=== PATIENT | female | born 1955 | race Caucasian/White ===

== ENCOUNTER 2022-03-01 11:08 | Day surgery (SDC) | payer OTHER ==
[2022-02-27 13:59] LABS: Absolute Lymphocytes (CBC) 0.9 K/uL (0.7-4.9); Hematocrit 38.4 % (36.0-45.0); MCV 91.4 fL (80-100); MPV 6.7 fL (7.6-11.3); RBC Red Blood Cell Count 4.19 M/uL (3.86-4.86)
[2022-02-27 14:01] LABS: Potassium 4.1 mmol/L (3.5-5.1)
--- NOTE | 2022-02-27 14:06 | RAD REPORT ---
EXAM DESCRIPTION: Emmanuelle Traylor (2 Views)02/27/2022 1:49 pm CLINICAL HISTORY: Preop for hand surgery. Breast cancer COMPARISON: 2014 FINDINGS: The lungs appear clear of acute infiltrate. The heart is normal size IMPRESSION: No acute abnormalities displayed
[2022-02-27 14:19] LABS: Protime INR 0.78
--- NOTE | 2022-02-28 14:00 | EKG ---
Test Date: 2022-02-27 Test Time: 13:16:55 Slumber Room Attendant: KILLIANR MEASUREMENT RESULTS: Intervals: Rate: 65 ME: 116 QRSD: 72 QT: 400 QTc: 416 [place]: P: 22 ME: 116 QRS: 45 T: 25 INTERPRETIVE STATEMENTS: Normal sinus rhythm Normal ECG No previous ECG available for comparison Electronically Signed On 02-28-22 13:59:22 CDT by Raphael Taylor
[2022-03-01] MEDS ORDERED: CLINDAMYCIN 600MG/D5W 600 MG/50 ML BAG IV ONE (11:30)
[2022-03-01] MEDS ORDERED: Ringers Lactate 1,000 ML IV ONE ×2 (11:30→14:07)
[2022-03-01] MEDS ORDERED: LIDOCAINE 1% MPF 5 ML VIAL ONE (12:25)
[2022-03-01] MEDS ORDERED: MIDAZOLAM HCL 2 MG/2 ML INJ ONE (12:26)
[2022-03-01] MEDS ORDERED: EPINEPHRINE/PF 1 MG/ML AMP ONE (12:26)
[2022-03-01] MEDS ORDERED: BUPIVACAINE 0.5% Inj,MDV 50 mL VIAL ONE (12:26)
[2022-03-01] MEDS ORDERED: FENTANYL CITR 100 MCG/2 ML ONE ×2 (12:26→13:54)
[2022-03-01] MEDS ORDERED: ROPLVACAINE HCL 20 ML ONE (12:32)
[2022-03-01] MEDS ORDERED: propofoL 200 MG/20 ML VIAL IV ONE (12:52)
[2022-03-01] MEDS ORDERED: KETOROLAC 30 MG/ML INJ ONE (12:52)
[2022-03-01] MEDS ORDERED: dexAMETHasone 10 MG/ML VIAL ONE (12:52)
[2022-03-01] MEDS ORDERED: LIDOCAINE 2% MPF 5 ML VIAL ONE (12:53)
[2022-03-01] MEDS ORDERED: ONDANSETRON 4 MG/2 ML VIAL ONE (12:53)
[2022-03-01] MEDS ORDERED: BUPIVACAINE 0.5% PF 10 ML VIAL ONE (13:05)
--- NOTE | 2022-03-01 14:48 | P.BOP ---
Preoperative diagnosis: right distal radius fracture Postoperative diagnosis: same Primary procedure: open reduction internal fixation right distal radius fracture Certified Orthotist Practice Manager: NONE,NONE Estimated blood loss: 5 cc Specimen: none Findings: see dictation Anesthesia: General Complications: None Implants: Acumed 3 hole narrow distal radius locking plate Fluids & blood products: per anesthesia record; TT: 58 mins @ 250 mmHg Transferred to: Recovery Room Condition: Good
[2022-03-01] MEDS: HYDROMORPHONE HCL 1 MG/ML INJ ONE ×4 (15:10→15:30)
--- NOTE | 2022-03-01 15:19 | RAD REPORT ---
EXAM DESCRIPTION: RAD - Wrist Right 2 View - 03/01/2022 3:13 pm FINDINGS: There were 12 portable C-arm views submitted from fluoroscopic assisted placement of dista l radius fracture fixation hardware. No suspicious or unexpected findings. Fluoro time was 0.2 minutes. Cumulative dose was 0.202 mGy.
--- NOTE | 2022-03-01 16:03 | RAD REPORT ---
EXAM DESCRIPTION: RAD - Wrist Right 2 View - 03/01/2022 3:46 pm FINDINGS: PA and lateral views of the right wrist obtained following surgical fixation fracture. Juancarlos t material is in place. Hardware is well positioned. No suspicious or unexpected finding.
[2022-03-01 16:44] VITALS: BP 118/76; TEMP 97.8; O2SAT 99
--- NOTE | 2022-03-01 21:32 | P.OP ---
Preoperative diagnosis: right distal radius fracture Postoperative diagnosis: same Primary procedure: open reduction internal fixation two part right distal radius fracture Anesthesia: general Estimated blood loss: 5 cc Specimen: none Findings: see dictation Operative Technique: Indications: Bobbi is a 66-year-old female who presented to my clinic with signs, symptoms and x-ray findings consistent with a displaced angulated distal radius fracture. I discussed with the patient at length, risks and benefits associated with operative and nonoperative treatment and she expressed understanding and would like to proceed with operative treatment. Description Of Procedure: After informed consent was obtained, the patient was identified in the preoperative holding area. The right upper extremity was marked. The patient was then brought back to PACU, where she underwent a right upper extremity interscalene anesthesia to aid with postoperative pain control p erformed by Anesthesia. The patient was then brought back to the operating room, transferred to the operating table in the supine fashion, and placed under general LMA anesthesia. The right upper extremity was then prepped and draped in usual sterile fashion. A time-out was initiated and correct patient and procedure were confirmed and identified. The patient did receive her preoperative prophylactic antibiotics. Approximately a 6 cm longitudinal incision was made over the FCR tendon consistent with a volar Matthew approach. The FCR tendon sheath was identified, was split and divided in line with the incision. The FCR tendon was then retracted gently radially and the floor of the tendon sheath was opened using Metzenbaum. Blunt dissection was then taken down to the distal radius and the pronator quadratus was identified. The pronator quadratus was then elevated off the distal radius using a 15 blade and elevated using a wood handle elevator. The fracture was identified. The fracture was then held reduced with the use of a Nordheim elevator. A K-wire was then used introduced from the tip of the radial styloid and brought through in retrograde fashion to hold reduction. A 3 hole distal radius locking plate was then placed on the distal radius. Proper placement of the plate was confirmed using fluoroscopy. Once in proper position, a guide pin was then placed distally and was noted to b e just proximal to the articular surface. A single proximal 3.5 cortical screw was then placed within the shaft reducing the plate to the distal radius and then 4 distal radius locking screws were then placed at the distal portion of the plate to hold the distal fragment in position. Fluoroscopy was used to ensure proper placement of the plate and screws as well as proper reduction and this was confirmed. Two remaining proximal fracture screws were placed using 3.5 cortical screws in bicortical fashion. There was overall good reduction of the fracture as well as placement of the hardware. Final x-rays were then taken to confirm hardware placement as well as reduction. The wounds were then irrigated thoroughly with normal saline. Subcutaneous tissue was approximated using a 2-0 Vicryl. Skin was approximated using a 3-0 nylon. Sterile dressings were applied. The patient was placed in a sugar-tong splint, awakened and transferred to PACU in stable condition. Postoperative Plan: The patient will followup in 2 weeks for wound check, suture removal and placement of a removable wrist brace. Complications: None Implants: Acumed 3 hole narrow distal radius locking plate Fluids & blood products: per anesthesia record; TT: 58 mins @ 250 mmHg Transferred to: Recovery Room Condition: Good
== END 2022-03-01 16:40 | disposition home or self-care (01) ==
LOC: OR 11:08
PROVIDERS: ATTEND Orthopaedic Surgery Sports Medicine
PROC: 0PSH04Z Reposition Right Radius with Internal Fixation Device, Open Approach (ICD-10-PCS; principal; 2022-03-01 13:30)
DX: S52.571A Other intraarticular fracture of lower end of right radius, initial encounter for closed fracture (principal)
CPT/HCPCS: 93005; 85025; 80048; 36415; 85610; 85730; 71046; 73100 ×2; 25608; J2704; J0171; J2001 ×2; J2250; J3010 ×2; J1100; J2795; J1170 ×2; J7120 ×2; J2405

== ENCOUNTER 2023-10-21 17:35 | Emergency (ER) | payer MEDICARE, OTHER ==
[2023-10-21] MEDS ORDERED: methocarbamoL 500 MG TAB ONE (18:05)
--- NOTE | 2023-10-21 19:02 | RAD REPORT ---
EXAM DESCRIPTION: RAD - Ankle Left 3 View - 10/21/2023 6:56 pm CLINICAL HISTORY: PAIN COMPARISON: Ankle Left 3 View dated 08/20/2012 FINDINGS: No acute fracture or dislocation seen. Moderate posterior calcaneal spur.
--- NOTE | 2023-10-21 19:03 | RAD REPORT ---
EXAM DESCRIPTION: RAD - Foot Left 3 View - 10/21/2023 6:56 pm CLINICAL HISTORY: PAIN COMPARISON: No comparisons FINDINGS: There is a mildly angulated fracture of the second metatarsal neck. No additional fracture seen. Moderate posterior calcaneal spur.
--- NOTE | 2023-10-21 19:11 | ER ---
Nurse's Notes [facility] Name: Bobbi Fontenot Age: 68 yrs Sex: Female : 1955 Arrival Date: 10/21/2023 Time: 17:35 Bed 15 Private MD: Diagnosis: Displaced fracture of second metatarsal bone, left foot, initial encounter for closed fracture Presentation: 10/20 17:45 Chief complaint: Stepped off curb and rolled ankle yesterday, c/o left foot pain 8/10. hb Coronavirus screen: At this time, the client does not indicate any symptoms associated with coronavirus-19. Ebola Screen: No symptoms or risks identified at this time. Initial Sepsis Screen: Does the patient meet any 2 criteria? No. Patient's initial sepsis screen is negative. Does the patient have a suspected source of infection? No. Patient's initial sepsis screen is negative. Risk Assessment: Do you want to hurt yourself or someone else? Patient reports no desire to harm self or others. Onset of symptoms was October 20, 2023. 17:45 Method Of Arrival: Wheelchair hb 17:45 Acuity: CHRISTINA 4 hb Triage Assessment: 17:47 General: Appears in no apparent distress. Behavior is calm, cooperative. Pain: Pain hb currently is 8 out of 10 on a pain scale. Neuro: Level of Consciousness is awake, alert, obeys commands, Oriented to person, place, time, situation. Cardiovascular: Patient's skin is warm and dry. Respiratory: Respiratory effort is even, unlabored, Respiratory pattern is regular, symmetrical. Musculoskeletal: Reports left foot pain 8/. Historical: - Allergies: 17:46 Anaprox; hb 17:46 Aspirin; hb 17:46 Azithromycin; hb 17:46 Codeine; hb 17:46 Latex; hb 17:46 Levaquin; hb 17:46 PENICILLINS; hb 17:46 Sulfa (Sulfonamide Antibiotics); hb 17:46 talacen; hb 17:46 Talwin; hb 17:46 tramadol; hb - PMHx: 17:46 BREAST CA; hb - PSHx: 17:46 Appendectomy; section; Total abdominal hysterectomy; hb - Immunization history:: Adult Immunizations up to date. - Infectious Disease History:: Denies. - Social history:: Smoking status: Patient denies any tobacco usage or history of. Screenin:09 [facility] ED Fall Risk Assessment (Adult) History of falling in the last 3 months, bp including since admission Yes- single mechanical fall (1 pt). Abuse screen: Denies threats or abuse. Denies injuries from another. Nutritional screening: No deficits noted. Tuberculosis screening: No symptoms or risk factors identified. Assessment: 18:09 General: Appears in no apparent distress. Behavior is cooperative, appropriate for age, bp anxious. 19:15 Reassessment: Patient is alert, oriented x 3, equal unlabored respirations, skin lc8 warm/dry/pink. Vital Signs: 17:45 BP 126 / 59; Pulse 89; Resp 16; Temp 97.6(O); Pulse Ox 99% on R/A; Weight 44 kg; Height hb 5 ft. 1 in. ; Pain 8/10; 19:15 BP 128 / 61; Pulse 82; Resp 16; Pulse Ox 98% ; lc8 17:45 Body Mass Index 18.33 (44.00 kg, 154.94 cm) hb 17:45 Pain Scale: Adult hb ED Course: 17:39 Patient arrived in ED. rg4 17:39 John Allen MD is Attending Physician. ec2 17:46 Triage completed. hb 17:47 Arm band placed on. hb 17:59 Ahmet Ramos, LYDIA is Primary Nurse. bp 18:09 Patient has correct armband on for positive identification. bp 18:58 Foot Left 3 View XRAY In Process Unspecified. EDMS 18:58 Ankle Left 3 View XRAY In Process Unspecified. EDMS 19:10 John Morin MD is Referral Physician. ec2 19:20 Provided Education on: follow up insturctions. lc8 19:20 No provider procedures requiring assistance completed. lc8 19:20 Patient did not have IV access during this emergency room visit. lc8 Administered Medications: 18:09 Not Given (Patient Refused): [id number] mg PO once bp Medication: 19:20 VIS not applicable for this client. lc8 Outcome: 19:10 Discharge ordered by . ec2 19:20 Discharged to home ambulatory, with family, lc8 19:20 Condition: stable 19:20 Discharge instructions given to patient, Instructed on discharge instructions, follow up and referral plans. 19:31 Patient left the ED. lc8 Signatures: Dispatcher [employer] Wendi Maynard, RN RN Poonam Stringer rg4 Ahmet Ramos RN RN John Cuevas MD MD ec2 Marcus Diaz RN RN lc8
--- NOTE | 2023-10-21 19:11 | EDPHYS ---
Physician Documentation [facility] Name: Bobbi Fontenot Age: 68 yrs Sex: Female : 1955 Arrival Date: 10/21/2023 Time: 17:35 Bed 15 Private MD: ED Physician John Allen HPI: 10/20 19:08 This 68 yrs old Female presents to ER via Wheelchair with complaints of Fall ec2 Injury. 19:08 Patient arrives today for evaluation of a foot injury. Had misstep and injured her ec2 foot.. Historical: - Allergies: 17:46 Anaprox; hb 17:46 Aspirin; hb 17:46 Azithromycin; hb 17:46 Codeine; hb 17:46 Latex; hb 17:46 Levaquin; hb 17:46 PENICILLINS; hb 17:46 Sulfa (Sulfonamide Antibiotics); hb 17:46 talacen; hb 17:46 Talwin; hb 17:46 tramadol; hb - PMHx: 17:46 BREAST CA; hb - PSHx: 17:46 Appendectomy; section; Total abdominal hysterectomy; hb - Immunization history:: Adult Immunizations up to date. - Infectious Disease History:: Denies. - Social history:: Smoking status: Patient denies any tobacco usage or history of. ROS: 19:08 Constitutional: as per hpi ec2 Exam: 19:08 Constitutional: GEN: NAD Head: atraumatic Eyes: EOMI Ears: External ears are ec2 normal. CV: regular rate LUNGS: no respiratory distress ABD: non-distended SKIN: no evidence of rashes MSK: Left foot with TTP. NEURO: moves all extremities equally Vital Signs: 17:45 BP 126 / 59; Pulse 89; Resp 16; Temp 97.6(O); Pulse Ox 99% on R/A; Weight 44 kg; Height hb 5 ft. 1 in. ; Pain 8/10; 19:15 BP 128 / 61; Pulse 82; Resp 16; Pulse Ox 98% ; lc8 17:45 Body Mass Index 18.33 (44.00 kg, 154.94 cm) hb 17:45 Pain Scale: Adult hb MDM: 17:40 Patient medically screened. ec2 19:09 Data reviewed: vital signs. ED course: Patient arrives today for evaluation of left ec2 foot injury. Examination remarkable for MSK findings as above. Radiograph obtained, shows slight metatarsal fracture. Will place patient in a hard soled shoe and have the patient follow-up outpatient expectantly with orthopedic surgery. I offered the patient different pain medications however she declined indicating multiple medication allergies.. 10/20 17:53 Order name: Foot Left 3 View XRAY; Complete Time: 19:07 ec2 10/20 17:53 Order name: Ankle Left 3 View XRAY; Complete Time: 19:07 ec2 10/20 17:53 Order name: Connor Wrap; Complete Time: 18:00 ec2 10/20 19:12 Order name: Post-op shoe; Complete Time: 19:44 ec2 Administered Medications: 18:09 Not Given (Patient Refused): [id number] mg PO once bp Disposition Summary: 10/21/23 19:10 Discharge Ordered Notes: Location: Home ec2 Condition: Stable ec2 Diagnosis - Displaced fracture of second metatarsal bone, left foot, initial encounter for ec2 closed fracture Followup: ec2 - With: John Morin MD - When: - Reason: Recheck today's complaints Discharge Instructions: - Discharge Summary Sheet ec2 - Metatarsal Fracture ec2 Forms: - Medication Reconciliation Form ec2 - Antibiotic Education ec2 - Prescription Opioid Use ec2 - Patient Portal Instructions ec2 - Leadership Thank You Letter ec2 Signatures: Dispatcher [employer] Wendi Maynard RN RN John Allen MD MD ec2 Ahmet Ramos RN bp Corrections: (The following items were deleted from the chart) 19:09 19:08 Constitutional: No acute distress ec2 ec2 10/21 09:05 10/20 19:09 ED course: Patient arrives today for evaluation of left foot injury. ec2 Examination remarkable for MSK findings as above. Radiograph obtained, shows slight metatarsal fracture. Will place patient in a hard soled shoe and have the patient follow-up outpatient expectantly with orthopedic surgery.. ec2
[2023-10-21 19:55] VITALS: BP 126/59; TEMP 97.6; O2SAT 99
== END 2023-10-21 19:31 | disposition home or self-care (01) ==
LOC: ER 17:35
DX: S92.322A Displaced fracture of second metatarsal bone, left foot, initial encounter for closed fracture (principal)
CPT/HCPCS: 99282

== ENCOUNTER 2024-07-25 13:34 | Emergency (ER) | payer MEDICARE ==
[2024-07-25 14:22] LABS: Absolute Eosinophils 0.1 K/uL (0-0.5); Absolute Lymphocytes (CBC) 1.1 K/uL (0.7-4.9); Absolute Monocytes 0.9 K/uL (0.1-1.3); Absolute Neutrophil 3.7 K/uL (1.8-8.0); Basophils % 0.5 % (0-1.3); Eosinophils % 2.3 % (0-4.4); Hematocrit 36.8 % (36.0-45.0); Hemoglobin 12.6 g/dL (12.0-15.0); Lymphocytes % 18.3 % (15.3-44.8); MCH 31.5 pg (27.0-35.0); MCHC 34.2 g/dL (32.0-36.0); MCV 92.3 fL (80-100); MPV 6.9 fL (7.6-11.3); Neutrophils % 62.9 % (41.7-73.7); Platelets 385 thou/uL (152-406); RBC Red Blood Cell Count 3.99 M/uL (3.86-4.86); Red Cell Distribution Width 13.1 % (12.1-15.2)
--- NOTE | 2024-07-25 14:26 | RAD REPORT ---
EXAM: CT brain without contrast HISTORY: DIZZINESS COMPARISON: 03/01/2009 TECHNIQUE: Multiple contiguous axial images were obtained and a CT of the brain without contrast. Sag ittal and coronal reformats were performed. One or more of the following dose reduction techniques were used: Automated exposure control, adjust ment of the mA and/or kV according to patient size, and/or iterative reconstruction. FINDINGS: No evidence of hydrocephalus, intracranial hemorrhage, or extra-axial fluid collection. A few small periventricular areas of chronic microvascular ischemia. No evidence of midline shift or areas of brain edema. The calvarium is intact. The visualized paranasal sinuses and mastoid air cells are essentially clear . IMPRESSION: No evidence of acute intracranial abnormality.
--- NOTE | 2024-07-25 14:27 | RAD REPORT ---
EXAMINATION: ONE VIEW CHEST XR CLINICAL INDICATION: CHEST PAIN TECHNIQUE: Frontal chest projection is submitted. Examination is limited by patient positioning and t echnique. COMPARISON: 02/27/2022 FINDINGS: The lungs are well inflated and clear. The heart is upper limit of normal in size. No displaced fract ures identified. Aortic atherosclerosis. IMPRESSION: No acute intrathoracic abnormalities.
[2024-07-25 14:29] LABS: PT Prothrombin Time 10.7 SECONDS (10-13.0); Protime INR 0.94
[2024-07-25 14:30] LABS: PTT, Activated Partial Thromb 33.1 SECONDS (27.2-37.4)
[2024-07-25 15:07] LABS: ALT/SGPT 20 U/L (13-56); AST/SGOT 16 U/L (15-37); Albumin 3.8 g/dL (3.4-5.0); Albumin/Globulin Ratio 0.9 (1.1-1.8); Alkaline Phosphatase 73 U/L (45-117); Anion Gap 8.5 mEq/L (5.0-15.0); BUN Blood Urea Nitrogen 16 mg/dL (7-18); Bicarbonate 28 mEq/L (21-32); Bilirubin Direct < 0.2 mg/dL (0-0.2); Bilirubin Indirect, Calculated 0.1 mg/dL (0.2-0.8); Bilirubin Total 0.3 mg/dL (0.2-1.0); Globulin 4.2 g/dL (2.3-3.5); Glomerular Filtration Rate 95 ml/min (=/>90); Glucose Level 100 mg/dL (74-106); Magnesium 2.3 mg/dL (1.6-2.4); Potassium 4.5 mEq/L (3.5-5.1); Sodium Level 136 mEq/L (136-145); Troponin High Sensitivity 4.2 pg/mL (<58.9)
--- NOTE | 2024-07-25 17:44 | RAD REPORT ---
EXAMINATION: MRI BRAIN WITHOUT CONTRAST CLINICAL INDICATION: DIZZINESS TECHNIQUE: Multiplanar multisequence MR images of the brain were obtained without intravenous contras t. Unless otherwise specified, incidental findings do not require dedicated imaging follow-up. COMPARISON: No prior exam. FINDINGS: INTRACRANIAL: Diffusion-weighted images show no acute or early subacute infarction. No abnormal brain parenchymal signal. The ventricles are normal in size and morphology. No augmented susceptibility. There is no mass effect or midline shift. No abnormal extraaxial fluid collection. There are several FLAIR hyperintense lesions periventricular white matter which could be related to chronic microvascular ischemia or demyelinating condition. Clinical correlation recommended. VASCULATURE: Normal signal voids in the larger intracranial arteries and dural venous sinuses. SINUSES: The paranasal sinuses and mastoid air cells are predominantly clear. BONE: The marrow signal pattern is within normal limits. IMPRESSION: Negative for acutre CVA or other acute intracranial finding.
[2024-07-25 18:10] LABS: Specific Gravity 1.018 (1.005-1.030); Urine Bilirubin NEGATIVE (Negative); Urine Blood Negative (Negative); Urine Clarity Clear (Clear); Urine Color Yellow (Yellow); Urine Glucose NEGATIVE (Negative); Urine Ketones NEGATIVE (Negative); Urine Microscopic Reflex YN NO UMIC; Urine Nitrite NEGATIVE (Negative); Urine Protein NEGATIVE (Negative); Urine Urobilinogen Normal (Normal); Urine pH 6.5 (5.0-7.0)
--- NOTE | 2024-07-25 19:15 | RAD REPORT ---
EXAMINATION: CTA HEAD CLINICAL INDICATION: DIZZINESS TECHNIQUE: Axial CT images were obtained through the head after intravenous contrast utilizing angiog raphic protocol with 3D post-processing (maximum intensity projection images, volume rendered images and/or shaded surface rendered images). One or more of the following dose reduction technique s were used: Automated exposure control, adjustment of the mA and/or kV according to patient size, and/or iterative reconstruction. Unless otherwise specified, incidental findings do not require dedic ated imaging follow-up. COMPARISON: No prior exam. FINDINGS: ICA: The petrous, cavernous, and supraclinoid segments of the bilateral internal carotid arteries are normal. The ophthalmic artery origins are visualized and normal. The posterior communicating arteries are patent. [place]: Anterior cerebral arteries are normal bilaterally. The anterior communicating artery is patent. MCA: Middle cerebral arteries are normal bilaterally. UTILITY SYSTEMS REPAIRER OPERATOR: Posterior cerebral arteries are normal bilaterally. Vertebrobasilar: The vertebral arteries are patent. The basilar artery is normal in appearance. 3D images confirm these findings. IMPRESSION: No significant flow abnormality is identified.
--- NOTE | 2024-07-25 19:24 | RAD REPORT ---
EXAMINATION: CTA NECK CLINICAL INDICATION: dizziness TECHNIQUE: Axial CT images were obtained from the aortic arch to the skull base after intravenous con trast utilizing angiographic protocol with 3D post-processing (maximum intensity projection images, volume rendered images and/or shaded surface rendered images). One or more of the following dose redu ction techniques were used: Automated exposure control, adjustment of the mA and/or kV according to patient size, and/or iterative reconstruction. Unless otherwise specified, incidental findings do not require dedicated imaging follow-up. COMPARISON: No prior exam. FINDINGS: AORTA: The imaged aortic arch is normal. CCA: The common carotid arteries are patent and normal in caliber. ICA/ECA: Moderate hard plaque is seen in both carotid bulbs, slightly greater on the right. This resu lts in stenosis of 50% or less bilaterally. VERTEBRAL: The cervical vertebral arteries are patent. The vertebral arteries are codominant. SOFT TISSUE: No significant neck soft tissue abnormalities. The visualized lung apices are clear. 3D images confirm these findings. IMPRESSION: Moderate hard plaque is seen in both carotid bulbs, slightly greater on the right. This results in ap proximately 50% stenosis on the right. NASCET criteria used. Mild 0-49% stenosis Moderate 50-69% stenosis Severe 70-99% stenosis
--- NOTE | 2024-07-25 19:32 | EDPHYS ---
Physician Documentation [facility] Name: Bobbi Fontenot Age: 69 yrs Sex: Female : 1955 Arrival Date: 07/25/2024 Time: 13:34 Bed 10 Private MD: ED Physician Sammie Prasad HPI: 07/25 14:01 This 69 yrs old Female presents to ER via Ambulatory with complaints of Shortness Of kb Breath, Dizziness. 14:01 Pt is a 69 year old female who presents for dizziness that has been intermittent for 6 kb days. States it is getting better, but her children wanted her to come get checked out. Denies n/v/d, visual disturbances, numbness. Was seen at on Sunday and diagnosed with a UTI, started her on Macrobid. Reports slight shortness of breath and a few episodes of chest discomfort. Reports fatigue. . Historical: - Allergies: 13:57 Anaprox; iw 13:57 Aspirin; iw 13:57 Azithromycin; iw 13:57 Codeine; iw 13:57 Levaquin; iw 13:57 PENICILLINS; iw 13:57 Sulfa (Sulfonamide Antibiotics); iw 13:57 talacen; iw 13:57 Talwin; iw 13:57 tramadol; iw - PMHx: 13:57 BREAST CA; iw - PSHx: 13:57 Appendectomy; section; Total abdominal hysterectomy; iw - Immunization history:: Adult Immunizations up to date. - Infectious Disease History:: Denies. - Social history:: Smoking status: Patient denies any tobacco usage or history of. ROS: 14:01 Constitutional: As per HPI kb Exam: 14:04 Constitutional: This is a well developed, well nourished patient who is awake, alert, kb and in no acute distress. Head/Face: Normocephalic, atraumatic. ENT: Moist Mucous membranes Cardiovascular: Regular rate Respiratory: Respirations even and unlabored. No increased work of breathing. Talking in full sentences Abdomen/GI: Soft, non-tender. No distention Skin: Warm, dry with normal turgor. Normal color. MS/ Extremity: Pulses equal, no cyanosis. Neurovascular intact. Full, normal range of motion. Neuro: Awake and alert, GCS 15, oriented to person, place, time, and situation. 18:25 ECG was reviewed by the Attending Physician. kb Vital Signs: 13:57 BP 143 / 68; Pulse 74; Resp 16; Pulse Ox 97% on R/A; iw 18:25 BP 154 / 84; Pulse 77; Resp 16; Pulse Ox 100% on R/A; Pain 0/10; hb 20:17 BP 146 / 76; Pulse 75; Resp 16; Pulse Ox 97% ; cp4 18:25 Pain Scale: Adult hb MDM: 13:41 Medical Screening Exam initiated kb 14:05 Data reviewed: vital signs, nurses notes. ED course: Pt is a 69 year old female with a kb history of hypertension, high cholesterol and breast CA that presents for dizzy spells, slight shortness of breath and fatigue that started 6 days ago. Currents medications include carvedilol 12.5mg BID, losartan 25mg BID and pravastatin 10mg QHS. No acute findings on exam. Pt is in no distress at this time. Will obtain serum labs, EKG and CT head. . 19:32 Differential diagnosis: vertigo, dehydration, abnormal electrolytes, CVA. Consideration kb of Admission/Observation Escalation of care including admission/observation considered. admission considered. Pt has follow up with PCP on Sunday. . Historians other than the Patient: Spouse/Significant Other: boyfriend. Counseling: I had a detailed discussion with the patient and/or guardian regarding the historical points, exam findings, and any diagnostic results supporting the discharge/admit diagnosis, lab results, radiology results, the need for outpatient follow up, a family practitioner, to return to the emergency department if symptoms worsen or persist or if there are any questions or concerns that arise at home. 07/25 14:01 Order name: Basic Metabolic Panel; Complete Time: 15:09 kb 07/25 14:01 Order name: CBC with Diff; Complete Time: 14:52 kb 07/25 14:01 Order name: Hepatic Function; Complete Time: 15:09 kb 07/25 14:01 Order name: Magnesium; Complete Time: 15:09 kb 07/25 14:01 Order name: Protime (+inr); Complete Time: 14:52 kb 07/25 14:01 Order name: Ptt, Activated; Complete Time: 14:52 kb 07/25 14:01 Order name: Troponin High Sensitivity; Complete Time: 15:09 kb 07/25 14:01 Order name: Urinalysis w/ reflexes; Complete Time: 18:12 kb 07/25 14:01 Order name: Chest Single View XRAY; Complete Time: 14:52 kb 07/25 14:05 Order name: CT Head Brain wo Cont; Complete Time: 14:52 kb 07/25 15:14 Order name: MRI - Brain Wo Cont; Complete Time: 17:52 kb 07/25 18:08 Order name: CT Head Angio; Complete Time: 19:17 kb 07/25 18:08 Order name: CT Neck Angio; Complete Time: 19:27 kb 07/25 14:01 Order name: EKG - Nurse/Tech; Complete Time: 18:25 kb 07/25 14:01 Order name: IV Saline Lock; Complete Time: 17:59 kb 07/25 14:01 Order name: Labs collected and sent; Complete Time: 17:59 kb 07/25 14:01 Order name: NPO; Complete Time: 17:59 kb 07/25 14:01 Order name: O2 Per Protocol; Complete Time: 17:59 kb 07/25 14:01 Order name: O2 Sat Monitoring; Complete Time: 17:59 kb 07/25 16:31 Order name: Misc. Order: awaiting urine and ekg; Complete Time: 18:25 kb EC:25 Rate is 66 beats/min. Rhythm is regular. QRS Bryan is Normal. WA interval is normal at kb 144 msec. QRS interval is normal at 68 msec. QT interval is normal at 387 msec. Administered Medications: No medications were administered Disposition Summary: 07/25/24 19:32 Discharge Ordered Notes: Location: Home kb Condition: Stable kb Diagnosis - Dizziness and giddiness kb Followup: kb - With: Private Physician - When: 2 - 3 days - Reason: Recheck today's complaints, Continuance of care, Re-evaluation by your physician Followup: kb - With: Emergency Department - When: As needed - Reason: Worsening of condition Discharge Instructions: - Discharge Summary Sheet kb - Vertigo, [id number] kb - Dizziness, [id number] kb Forms: - Medication Reconciliation Form kb - Antibiotic Education kb - Prescription Opioid Use kb - Patient Portal Instructions kb - Leadership Thank You Letter kb Signatures: Dispatcher [employer] Meera Feliz FNP-C [employer]ING RANGE TENDER-Lorie Guerrero, RN RN iw Wendi Mcfarland RN RN Corrections: (The following items were deleted from the chart) 14:01 14:01 Chest Single View+RAD.RAD.BRZ ordered. EDMS EDMS 15:14 15:14 Brain Wo Cont+MRI.RAD.BRZ ordered. EDMS EDMS
--- NOTE | 2024-07-25 19:32 | ER ---
Nurse's Notes [facility] Name: Bobbi Fontenot Age: 69 yrs Sex: Female : 1955 Arrival Date: 07/25/2024 Time: 13:34 Bed 10 Private MD: Diagnosis: Dizziness and giddiness Presentation: 07/25 13:56 Chief complaint: Patient states: dizzy spells. Coronavirus screen: At this time, the iw client does not indicate any symptoms associated with coronavirus-19. Risk Assessment: Do you want to hurt yourself or someone else? Patient reports no desire to harm self or others. 13:56 Method Of Arrival: Ambulatory iw 13:57 Ebola Screen: No symptoms or risks identified at this time. Initial Sepsis Screen: Does iw the patient meet any 2 criteria? No. Patient's initial sepsis screen is negative. Does the patient have a suspected source of infection? No. Patient's initial sepsis screen is negative. 13:57 Acuity: CHRISTINA 3 iw Historical: - Allergies: 13:57 Anaprox; iw 13:57 Aspirin; iw 13:57 Azithromycin; iw 13:57 Codeine; iw 13:57 Levaquin; iw 13:57 PENICILLINS; iw 13:57 Sulfa (Sulfonamide Antibiotics); iw 13:57 talacen; iw 13:57 Talwin; iw 13:57 tramadol; iw - PMHx: 13:57 BREAST CA; iw - PSHx: 13:57 Appendectomy; section; Total abdominal hysterectomy; iw - Immunization history:: Adult Immunizations up to date. - Infectious Disease History:: Denies. - Social history:: Smoking status: Patient denies any tobacco usage or history of. Screenin:25 [facility] ED Fall Risk Assessment (Adult) History of falling in the last 3 months, hb including since admission No falls in past 3 months (0 pts) Confusion or Disorientation No (0 pts) Intoxicated or Sedated No (0 pts) Impaired Gait No (0 pts) Mobility Assist Device Used No (0 pt) Altered Elimination No (0 pt) Score/Fall Risk Level 0 - 2 = Low Risk Oriented to surroundings, Maintained a safe environment, Educated pt \T\ family on fall prevention, incl call for assistance when getting out of bed. Abuse screen: Denies threats or abuse. Denies injuries from another. Nutritional screening: No deficits noted. Tuberculosis screening: No symptoms or risk factors identified. Assessment: 18:25 General: Appears in no apparent distress. Behavior is calm, cooperative. Pain: Denies hb pain. Neuro: Level of Consciousness is awake, alert, obeys commands, Oriented to person, place, time, situation. Cardiovascular: Patient's skin is warm and dry. Rhythm is regular. Respiratory: Airway is patent Respiratory effort is even, unlabored, Respiratory pattern is regular. GI: No signs and/or symptoms were reported involving the gastrointestinal system. : No signs and/or symptoms were reported regarding the genitourinary system. EENT: No signs and/or symptoms were reported regarding the EENT system. Derm: Skin is pink, warm \T\ dry. Musculoskeletal: No signs and/or symptoms reported regarding the musculoskeletal system. Vital Signs: 13:57 BP 143 / 68; Pulse 74; Resp 16; Pulse Ox 97% on R/A; iw 18:25 BP 154 / 84; Pulse 77; Resp 16; Pulse Ox 100% on R/A; Pain 0/10; hb 20:17 BP 146 / 76; Pulse 75; Resp 16; Pulse Ox 97% ; cp4 18:25 Pain Scale: Adult hb ED Course: 13:40 Patient arrived in ED. im 13:41 [facility] Negron [facility]C [facility] kb 13:41 Sammie Prasad MD is Attending Physician. kb 13:57 Triage completed. iw 14:16 CT Head Brain wo Cont In Process Unspecified. EDMS 14:24 Chest Single View XRAY In Process Unspecified. EDMS 14:30 Inserted saline lock: 20 gauge in right antecubital area, using aseptic technique. hb Blood collected. Flushed with 10 mL NS. 17:05 EKG done, by ED staff, reviewed by Meera CRYSTAL. hb 17:40 MRI - Brain Wo Cont In Process Unspecified. EDMS 17:59 Wendi Mcfarland, RN is Primary Nurse. hb 18:25 Patient has correct armband on for positive identification. Call light in reach. hb Provided Education on: tests, result times . 19:01 CT Head Angio In Process Unspecified. EDMS 19:01 CT Neck Angio In Process Unspecified. EDMS 20:18 No provider procedures requiring assistance completed. intact, bleeding controlled, No cp4 redness/swelling at site. Pressure dressing applied. Administered Medications: No medications were administered Medication: 18:25 VIS not applicable for this client. hb Outcome: 19:32 Discharge ordered by . shannan 20:18 Discharged to home ambulatory, cp4 20:18 Condition: stable 20:18 Discharge instructions given to patient, family, Instructed on discharge instructions, follow up and referral plans. Demonstrated understanding of instructions, follow-up care, 20:18 Patient left the ED. cp4 Signatures: Dispatcher [employer] EDMeera Thacker, BIOINFORMATICS ASSISTANT-C BIOINFORMATICS ASSISTANT-CkLorie De Oliveira, RN RN Wendi Mcfarland RN RN Johana Kaiser Christina cp4 Corrections: (The following items were deleted from the chart) 18:27 17:05 Inserted saline lock: 20 gauge in right antecubital area, using aseptic hb technique. Blood collected. Flushed with 10 mL NS hb
[2024-07-25 20:28] VITALS: BP 146/76; O2SAT 97
--- NOTE | 2024-07-28 12:08 | EKG ---
Test Date: 2024-07-25 Test Time: 18:20:36 Coal Chemist: HB MEASUREMENT RESULTS: Intervals: Rate: 66 KS: 144 QRSD: 68 QT: 370 QTc: 387 [place]: P: 52 KS: 144 QRS: 42 T: 25 INTERPRETIVE STATEMENTS: Normal sinus rhythm ST abnormality, possible digitalis effect Abnormal ECG Compared to ECG 02/27/2022 13:16:55 ST (T wave) deviation now present Electronically Signed On 07-28-24 12:02:28 CDT by Jose Chaidez
== END 2024-07-25 20:18 | disposition home or self-care (01) ==
LOC: ER 13:34
DX: R42 Dizziness and giddiness (principal); R06.02 Shortness of breath; R07.89 Other chest pain; R53.83 Other fatigue; Z85.3 Personal history of malignant neoplasm of breast
CPT/HCPCS: 93005; 85025; 80048; 36415; 83735; 85610; 80076; 85730; 81003; 84484; 70450; 70496; 70498; 71045; 70551; 99284; Q9967